=== PATIENT | male | born 1945 | race Caucasian/White ===

== ENCOUNTER 2017-10-29 12:04 | Emergency (ER) | payer MEDICARE, BC ==
[~2017-10-29] VITALS: Ht 188 cm; Wt 134.9 kg
[~2017-10-29 12:04] MED LIST: AMLO10TA2 PO; AMLO5TAB2 PO; FLUT16SP NS; MULT-658 PO; OMEP-110 PO; SIMV10TA3 PO; UBID100C41 PO; alkalol NS; potassium PO; testosterone TP
[2017-10-29 12:06] VITALS: BP 180/93
[2017-10-29 13:17] LABS: BASOPHILS # (AUTO) 0.05 x10^3/uL (0-0.1); BASOPHILS % (AUTO) 1 % (0-1); EOSINOPHILS # (AUTO) 0.09 x10^3/uL (0-0.4); EOSINOPHILS % (AUTO) 1 % (1-7); LYMPHOCYTES # (AUTO) 1.91 x10^3/uL (1-3.4); LYMPHOCYTES % (AUTO) 23 % (22-44); MD NO; MEAN CORPUSCULAR HEMOGLOBIN 29.7 pg (27.5-34.5); MEAN CORPUSCULAR HGB CONC 33.9 g/dL (33.2-36.2); MEAN CORPUSCULAR VOLUME 87.4 fL (81-97); MEAN PLATELET VOLUME 7.7 fL (7.4-10.4); MONOCYTES # (AUTO) 0.63 x10^3/uL (0.2-0.8); MONOCYTES % (AUTO) 8 % (2-9); NEUTROPHILS % (AUTO) 68 % (42-75); PLATELET COUNT 226 x10^3/uL (130-400); RED BLOOD COUNT 5.05 x10^6/uL (4.38-5.82); RED CELL DISTRIBUTION WIDTH 13.1 % (9.4-14.8)
[2017-10-29 13:29] LABS: ALBUMIN 3.9 g/dL (3.4-5.0); ANION GAP 7 mmol/L (5-15); CALCIUM 9.1 mg/dL (8.5-10.1); CHLORIDE 108 mmol/L (98-107); CREATININE 1.31 mg/dL (0.7-1.3)
== END 2017-10-29 14:49 | disposition home or self-care (01) ==
LOC: ED 13:45
DX: N28.9 Disorder of kidney and ureter, unspecified (principal); Z00.00 Encounter for general adult medical examination without abnormal findings; R94.31 Abnormal electrocardiogram [ECG] [EKG]; I10 Essential (primary) hypertension; Z86.79 Personal history of other diseases of the circulatory system
CPT/HCPCS: 36415; 71045; 80048; 82040; 83735; 84443; 85025; 93005; 99285

== ENCOUNTER → 2017-12-11 | Outpatient (CLI) | payer MEDICARE, BC | LOC: CVU 11:46 | PROVIDERS: ATTEND Internal Medicine Cardiovascular Disease | DX: I35.1 Nonrheumatic aortic (valve) insufficiency (principal); E11.9 Type 2 diabetes mellitus without complications | CPT/HCPCS: 0399T; 93306 ==

== ENCOUNTER → 2017-12-12 | Outpatient (CLI) | payer MEDICARE, BC ==
[~2017-12-12] MED LIST changes: +REGADENOSON 0.4 MG/5 ML SYRINGE ONE
== END | disposition home or self-care (01) ==
LOC: CFH 08:15
PROVIDERS: ATTEND Internal Medicine Cardiovascular Disease
DX: I10 Essential (primary) hypertension (principal); R94.31 Abnormal electrocardiogram [ECG] [EKG]
CPT/HCPCS: 78452; 93017; A9502; J2785

== ENCOUNTER 2020-01-21 06:39 | Outpatient (CLI) | payer MEDICARE, BC ==
[~2020-01-21 06:39] MED LIST changes: +AMLO-150 PO; -AMLO10TA2 PO; +AMLO10TA8 PO; -AMLO5TAB2 PO; -FLUT16SP NS; +FLUT16SP24 NS; -REGADENOSON 0.4 MG/5 ML SYRINGE ONE; +SIMV10TA18 PO; -SIMV10TA3 PO
[2020-01-21] MEDS ORDERED: REGADENOSON 0.4 MG/5 ML SYRINGE ONE (07:26)
== END 2020-01-21 23:59 | disposition home or self-care (01) ==
LOC: CVU 06:39 → CFH 23:59
PROVIDERS: ATTEND Internal Medicine Cardiovascular Disease
DX: I35.8 Other nonrheumatic aortic valve disorders (principal); I77.810 Thoracic aortic ectasia; I10 Essential (primary) hypertension; E11.9 Type 2 diabetes mellitus without complications
CPT/HCPCS: 78452; 93017; 93306; A9502; J2785